=== PATIENT | male | born 1945 | race Caucasian/White ===

== ENCOUNTER 2019-03-06 22:12 | Emergency (ER) | payer MEDICARE ==
--- NOTE | 2019-03-06 22:29 | EDM.PDOC ---
ED HPI GENERAL MEDICAL PROBLEM - General Chief Complaint: Respiratory Problem Stated Complaint: SHORTNESS OF BREATHE Time Seen by Provider: 03/06/19 22:28 Source of Information: Reports: Patient, Family (spouse.) - History of Present Illness INITIAL COMMENTS - FREE TEXT/NARRATIVE: 73-year-old male attends the ED with his after passing a large black tarry bad smelling stool at home tonight. He is also complaining of more short of breath than normal. He has a chronic postnasal drip which causes him to have a paroxysmal cough. He denies fever or chills although he did feel warm to palpation facial he and on his chest. States she's never had any black stools in the past. Last colonoscopy was at least 15 years ago when no polyps or tumors were identified. Denies any upper abdominal pain and no past history of peptic ulcer disease. He does not usually use Motrin or Aleve for pain. Does not take any aspirin. Patient gets occasional heartburn but doesn't use take any Tums or Rolaids. By history is no known congestive heart failure. Patient denies taking any Pepto-Bismol or eating a lot of beets recently. Onset: Today Onset Date: 03/06/19 Onset Time: 19:00 Duration: Minutes: Location: Reports: Abdomen (Passage of a black tarry stool.) Quality: Reports: Other (Denies any pain. Just more short of breath than normal. ) Severity: Mild Improves with: Reports: Rest Worsens with: Reports: Movement Context: Denies: Activity (Slightly more short of breath with activity.), Exercise, Lifting, Sick Contact, Trauma, Other Associated Symptoms: Reports: Cough, cough w sputum (Chronic cough), Malaise, Shortness of Breath, Other (Passage of black tarry stool tonight.). 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) (Only his regular medicines) - Related Data Allergies Allergy/AdvReac Type Severity Reaction Status Date / Time No Known Allergies Allergy Verified 03/06/19 22:23 Home Meds: Home Meds Allopurinol [Zyloprim] 300 mg PO DAILY 03/07/19 [History] Atenolol 50 mg PO BID 03/07/19 [History] Losartan Potassium 100 mg PO DAILY 03/07/19 [History] Omeprazole Magnesium [Prilosec Otc] 20 mg PO DAILY #42 tablet.dr 03/07/19 [Rx] Simvastatin [Zocor] 20 mg PO BEDTIME 03/07/19 [History] Triamcinolone Acetonide [Nasacort AQ [place]] 16.5 gm NASBOTH BEDTIME #1 bottle [Rx] amLODIPine Besylate [Amlodipine Besylate] 10 mg PO DAILY 03/07/19 [History] hydroCHLOROthiazide [Hydrochlorothiazide] 25 mg PO DAILY 03/07/19 [History] Past Medical History Cardiovascular History: Reports: Hypertension, [place] (IL on ECG but not by history. ) Musculoskeletal History: Reports: Back Pain, Chronic, Gout, Osteoarthritis, Other (See Below) (Rotator cuff disease and shoulders.) - Past Surgical History Musculoskeletal Surgical History: Reports: Other (See Below) (Surgery right shoulder for rotator cuff repair. Still has mild pain and reduced range of motion.) Social & Family History - Tobacco Use Smoking Status *Q: Never Smoker Second Hand Smoke Exposure: No - Caffeine Use Caffeine Use: Reports: Coffee - Alcohol Use Days Per Week of Alcohol Use: 7 Number of Drinks Per Day: 1 Total Drinks Per Week: 7 - Recreational Drug Use Recreational Drug Use: No - Living Situation & Occupation Living situation: Reports: Occupation: Retired ED ROS GENERAL - Review of Systems Review Of Systems: See Below Constitutional: Reports: Malaise, Fatigue. Denies: Fever, Chills, Decreased Appetite, Weight Gain HEENT: Reports: Glasses, Hearing Loss (Mild), Sinus Problem (Chronic sinus problems with postnasal drip which precipitate cough.) Respiratory: Reports: Shortness of Breath ( does not use hearing aids). Denies : Wheezing, Pleuritic Chest Pain Cardiovascular: Reports: Blood Pressure Problem, Dyspnea on Exertion. Denies: Claudication, Edema, Lightheadedness, Orthopnea Endocrine: Reports: Fatigue (Chronically) GI/Abdominal: Reports: Other. Denies: Abdominal Pain, Anorexia, Decreased Appetite, Hematemesis, Hematochezia : Reports: No Symptoms, Other Musculoskeletal: Reports: Back Pain (Nocturia usually once.), Joint Pain (Right shoulder with previous rotator cuff repair. Knees low back and neck at times) Skin: Reports: No Symptoms Neurological: Reports: No Symptoms Psychiatric: Reports: No Symptoms Hematologic/Lymphatic: Reports: No Symptoms ED EXAM, GENERAL - Physical Exam Exam: See Below Exam Limited By: No Limitations General Appearance: Alert, WD/WN, No Apparent Distress, Other (Does feel warm to palpation but temperatures reportedly 37.1 by nurses. Pulse of 64 respiratory distress 21 at rest. Pulse ox 97% on room air.. BP is 156/76 came down to 132/68) Eye Exam: Bilateral Eye: Normal Inspection (No scleral icterus.) Ears: Normal External Exam Throat/Mouth: Other Head: Atraumatic (Dry tongue and mouth. He states this is normal as he breathes a lot through his mouth.), Normocephalic Neck: Normal Inspection, Limited Range of Motion, Tender Lateral (Crepitus on rotation of the neck.), Other (No JVD.). No: Full Range of Motion, Carotid Bruit, Lymphadenopathy (L), Lymphadenopathy (R) Respiratory/Chest: Lungs Clear (Mild tachypnea at rest.), Normal Breath Sounds, Chest Non-Tender, Respiratory Distress, Other (Cough is nonproductive.) Cardiovascular: Normal Peripheral Pulses, Regular Rate, Rhythm, No Edema, No Gallop, No Murmur, No Rub Peripheral Pulses: 1+: Posterior Tibial (L), Posterior Tibial (R), Dorsalis Pedis (L), Dorsalis Pedis (R) GI/Abdominal: Normal Bowel Sounds, Soft, Non-Tender, No Organomegaly, No Distention, No Abnormal Bruit, No Mass, Pelvis Stable, Other (Large abdomen. Large abdominal girth inhibits ability to palpate solid organs.). No: Guarding , Rigid, Rebound, Tender (Male) Exam: No Hernia Rectal (Males) Exam: Normal Exam, Prostate Normal (Quite positive stool. Stool is yellow brown in color but the rectal vault for the most part was empty. Prostate is normal), Other Back Exam: Normal Inspection, Decreased Range of Motion Extremities: Normal Inspection (Arthritis changes appreciated and lumbar spine.) , Non-Tender, Other Neurological: Alert ( No dependent edema), Oriented, CN II-XII Intact, Normal Cognition, Normal Gait Psychiatric: Normal Affect, Normal Mood Skin Exam: Warm, Dry, Intact, Normal Color EKG INTERPRETATION EKG Date: 03/06/19 Time: 22:50 Rhythm: NSR Rate (Beats/Min): 59 [place]: LAD-Left [place] Deviation (Mild left axis deviation of -18) P-Wave: Present QRS: Other (There are Q waves V1 and V2 and near Q waves in V3 and V4 compared with an old anteroseptal myocardial infarction) ST-T: Other (T-wave flattening with slight inversion aVF and flattening in aVL. [place] findings) QT: Normal EKG Interpretation Comments: Abnormal ECG Course - Vital Signs Last Recorded V/S: Last Vital Signs Temp 37.1 C 03/06/19 22:17 Pulse 64 03/06/19 22:17 Resp 21 H 03/06/19 22:17 BP 156/76 H 03/06/19 22:17 Pulse Ox 97 03/06/19 22:17 Orthostatic Blood Pressure [ 128/77 Standing] Orthostatic Blood Pressure [ 116/67 Sitting] Orthostatic Blood Pressure [ 115/59 Supine] - Orders/Labs/Meds Orders: Active Orders 24 hr Category Date Time Status EKG Documentation Completion [RC] STAT Care 03/06/19 22:41 Active Hemoccult [Fecal Occult Blood Collection] [RC] Care 03/06/19 23:13 Active ASDIRECTED Orthostatic Vital Signs [RC] ASDIRECTED Care 03/07/19 00:26 Active Chest 1V Frontal [CR] Stat Exams 03/06/19 22:41 Taken Guaiac [OCCULT BLOOD DIAGNOSTIC] [OP] Stat Lab 03/06/19 22:42 Ordered PATIENT RETYPE [BBK] Routine Lab 03/06/19 23:33 Ordered Labs: Laboratory Tests 03/06/19 03/06/19 03/06/19 Range/Units 22:47 22:47 22:47 WBC 9.79 H (4.23-9.07) K/mm3 RBC 5.54 (4.63-6.08) M/mm3 Hgb 16.3 (13.7-17.5) gm/L Hct 46.7 (40.1-51.0) % MCV 84.3 (79.0-92.2) fl MCH 29.4 (25.7-32.2) pg MCHC 34.9 (32.2-35.5) g/dl RDW Std Deviation 39.7 (35.1-43.9) fL Plt Count 205 (163-337) K/mm3 MPV 10.5 (9.4-12.3) fl Neutrophils % (Manual) 65 H (40-60) % Band Neutrophils % 0 (0-10) % Lymphocytes % (Manual) 28 (20-40) % Atypical Lymphs % 0 % Monocytes % (Manual) 7 (2-10) % Eosinophils % (Manual) 0 L (0.8-7.0) % Basophils % (Manual) 0 L (0.2-1.2) Platelet Estimate Adequate RBC Morph Comment Normal ESR 6 (0-15) mm/hr PT (9.5-12.1) SECONDS INR APTT (24-31) SECONDS Sodium 139 (136-145) mEq/L Potassium 3.4 L (3.5-5.1) mEq/L Chloride 103 (98-107) mEq/L Carbon Dioxide 25 (21-32) mEq/L Anion Gap 14.4 (5-15) BUN 19 H (7-18) mg/dL Creatinine 1.4 H (0.7-1.3) mg/dL Est Cr Clr Drug Dosing 42.62 mL/min Estimated GFR (MDRD) 49 (>60) mL/min BUN/Creatinine Ratio 13.6 L (14-18) Glucose 189 H (83-115) mg/dL Calcium 9.0 (8.5-10.1) mg/dL Magnesium 2.0 (1.8-2.4) mg/dl Total Bilirubin 0.6 (0.2-1.0) mg/dL AST 20 (15-37) U/L ALT 30 (16-63) U/L Alkaline Phosphatase 56 (46-116) U/L Troponin I < 0.017 (0.00-0.056) ng/mL C-Reactive Protein < 0.2 (<1.0) mg/dL NT-Pro-B Natriuret Pep (0-450) pg/mL Total Protein 7.4 (6.4-8.2) g/dl Albumin 3.9 (3.4-5.0) g/dl Globulin 3.5 gm/dL Albumin/Globulin Ratio 1.1 (1-2) Urine Color (Yellow) Urine Appearance (Clear) Urine pH (5.0-8.0) Ur Specific [place] (1.005-1.030) Urine Protein (Negative) Urine Glucose (UA) (Negative) Urine Ketones (Negative) Urine Occult Blood (Negative) Urine Nitrite (Negative) Urine Bilirubin (Negative) Urine Urobilinogen (0.2-1.0) Ur Leukocyte Esterase (Negative) Urine RBC (0-5) /hpf Urine WBC (0-5) /hpf Ur Epithelial Cells (0-5) /hpf Urine Bacteria (FEW) /hpf Urine Mucus (FEW) /hpf H. pylori IgG Antibody (NEGATIVE) Blood Type Gel Antibody Screen 03/06/19 03/06/19 03/06/19 Range/Units 22:47 22:47 22:47 WBC (4.23-9.07) K/mm3 RBC (4.63-6.08) M/mm3 Hgb (13.7-17.5) gm/L Hct (40.1-51.0) % MCV (79.0-92.2) fl MCH (25.7-32.2) pg MCHC (32.2-35.5) g/dl RDW Std Deviation (35.1-43.9) fL Plt Count (163-337) K/mm3 MPV (9.4-12.3) fl Neutrophils % (Manual) (40-60) % Band Neutrophils % (0-10) % Lymphocytes % (Manual) (20-40) % Atypical Lymphs % % Monocytes % (Manual) (2-10) % Eosinophils % (Manual) (0.8-7.0) % Basophils % (Manual) (0.2-1.2) Platelet Estimate RBC Morph Comment ESR (0-15) mm/hr PT 11.7 (9.5-12.1) SECONDS INR 1.07 APTT 28 (24-31) SECONDS Sodium (136-145) mEq/L Potassium (3.5-5.1) mEq/L Chloride (98-107) mEq/L Carbon Dioxide (21-32) mEq/L Anion Gap (5-15) BUN (7-18) mg/dL Creatinine (0.7-1.3) mg/dL Est Cr Clr Drug Dosing mL/min Estimated GFR (MDRD) (>60) mL/min BUN/Creatinine Ratio (14-18) Glucose (83-115) mg/dL Calcium (8.5-10.1) mg/dL Magnesium (1.8-2.4) mg/dl Total Bilirubin (0.2-1.0) mg/dL AST (15-37) U/L ALT (16-63) U/L Alkaline Phosphatase (46-116) U/L Troponin I (0.00-0.056) ng/mL C-Reactive Protein (<1.0) mg/dL NT-Pro-B Natriuret Pep 73 (0-450) pg/mL Total Protein (6.4-8.2) g/dl Albumin (3.4-5.0) g/dl Globulin gm/dL Albumin/Globulin Ratio (1-2) Urine Color (Yellow) Urine Appearance (Clear) Urine pH (5.0-8.0) Ur Specific [place] (1.005-1.030) Urine Protein (Negative) Urine Glucose (UA) (Negative) Urine Ketones (Negative) Urine Occult Blood (Negative) Urine Nitrite (Negative) Urine Bilirubin (Negative) Urine Urobilinogen (0.2-1.0) Ur Leukocyte Esterase (Negative) Urine RBC (0-5) /hpf Urine WBC (0-5) /hpf Ur Epithelial Cells (0-5) /hpf Urine Bacteria (FEW) /hpf Urine Mucus (FEW) /hpf H. pylori IgG Antibody Negative (NEGATIVE) Blood Type A POSITIVE Gel Antibody Screen Negative 03/07/19 Range/Units 00:22 WBC (4.23-9.07) K/mm3 RBC (4.63-6.08) M/mm3 Hgb (13.7-17.5) gm/L Hct (40.1-51.0) % MCV (79.0-92.2) fl MCH (25.7-32.2) pg MCHC (32.2-35.5) g/dl RDW Std Deviation (35.1-43.9) fL Plt Count (163-337) K/mm3 MPV (9.4-12.3) fl Neutrophils % (Manual) (40-60) % Band Neutrophils % (0-10) % Lymphocytes % (Manual) (20-40) % Atypical Lymphs % % Monocytes % (Manual) (2-10) % Eosinophils % (Manual) (0.8-7.0) % Basophils % (Manual) (0.2-1.2) Platelet Estimate RBC Morph Comment ESR (0-15) mm/hr PT (9.5-12.1) SECONDS INR APTT (24-31) SECONDS Sodium (136-145) mEq/L Potassium (3.5-5.1) mEq/L Chloride (98-107) mEq/L Carbon Dioxide (21-32) mEq/L Anion Gap (5-15) BUN (7-18) mg/dL Creatinine (0.7-1.3) mg/dL Est Cr Clr Drug Dosing mL/min Estimated GFR (MDRD) (>60) mL/min BUN/Creatinine Ratio (14-18) Glucose (83-115) mg/dL Calcium (8.5-10.1) mg/dL Magnesium (1.8-2.4) mg/dl Total Bilirubin (0.2-1.0) mg/dL AST (15-37) U/L ALT (16-63) U/L Alkaline Phosphatase (46-116) U/L Troponin I (0.00-0.056) ng/mL C-Reactive Protein (<1.0) mg/dL NT-Pro-B Natriuret Pep (0-450) pg/mL Total Protein (6.4-8.2) g/dl Albumin (3.4-5.0) g/dl Globulin gm/dL Albumin/Globulin Ratio (1-2) Urine Color Yellow (Yellow) Urine Appearance Clear (Clear) Urine pH 5.5 (5.0-8.0) Ur Specific [place] 1.015 (1.005-1.030) Urine Protein Negative (Negative) Urine Glucose (UA) Negative (Negative) Urine Ketones Negative (Negative) Urine Occult Blood Negative (Negative) Urine Nitrite Negative (Negative) Urine Bilirubin Negative (Negative) Urine Urobilinogen 0.2 (0.2-1.0) Ur Leukocyte Esterase Negative (Negative) Urine RBC 0-5 (0-5) /hpf Urine WBC 0-5 (0-5) /hpf Ur Epithelial Cells 0-5 (0-5) /hpf Urine Bacteria Few (FEW) /hpf Urine Mucus Rare (FEW) /hpf H. pylori IgG Antibody (NEGATIVE) Blood Type Gel Antibody Screen Meds: Medications Discontinued Medications Generic Name Dose Route Start Last Admin Trade Name Freq PRN Reason Stop Dose Admin Sodium Chloride 1,000 mls @ 100 mls/hr 03/06/19 22:45 03/06/19 22:54 Normal Saline IV 100 mls/hr ASDIRECTED CARRILLO Administration Pantoprazole Sodium 40 mg 03/06/19 23:12 03/06/19 23:21 Protonix Iv IVPUSH 03/06/19 23:13 40 mg ONETIME ONE Administration - Radiology Interpretation Free Text/Narrative:: 73-year-old male presents to the ED with perhaps slightly worsening shortness of breath over the last few days. He has a chronic paroxysmal cough due to postnasal drip. He often brings up some sputum and phlegm. By history has COPD. Not using any medications for this. History of complaint is passage of a large black tarry bad smelling stool tonight at about 1900 hrs. He has no abdominal pain and has no history to suggest dyspepsia or peptic ulcer disease. Has occasional heartburn but this is quite rare and takes no medicine for this. He does not take Motrin, Aleve or aspirin. Dominant examination. Rectal exam is quite positive. Vital signs are all stable at this time. Plan IV normal saline at 100 mils per hour. Routine labs including BNP and H. pylori to be done. One view x-ray to be done of his chest. - Re-Assessments/Exams Free Text/Narrative Re-Assessment/Exam: 03/06/19 23:13 stool was yellow-brown in color in the rectal vault was for the most part empty. But he did test positive for blood. Prostate is within normal limits showing no nodularity or induration of the capsule. Will give Protonix 40 mg IV. 03/06/19 23:49 chest x-ray reveals an abnormal bony density left upper anterior chest probably representing chondrocalcinosis. Is likely old fracture of ribs 2 and 3. Cardiac silhouette is essentially normal and lungs reveal no other abnormalities. 03/06/19 23:52 Labs reveal a normal white count at 9.79. Differential 65% neutrophils and no band cells reported. Hemoglobin is 16.3 with hematocrit of 46.7. Platelet count is 205,000. Sedimentation rate is 6. PT is 11.7 with an INR of 1.07. PTT is 28. Sodium 139 with a potassium slightly low at 3.4. Chloride is 103 with a bicarbonate of 25. Anion gap is 14.4. BUN is 19 with a creatinine of 1.4. Estimated GFR is 49. Glucose is 189. Calcium is 9.0 with magnesium of 2.0. Liver function normal. Troponin I is less than 0.017 C- reactive protein is less than 0.2. BNP is 73. Total protein is 7.4. H. pylori antibody is negative. With a BUN of 19 this is again stay significant upper GI bleed. Therefore bleeding may be coming from the right side of the colon. 03/07/19 00:44 bottles signs remained completely stable with no abdominal pain. Therefore going to discharge him home as he appears to have a stable upper GI bleed. For the stools to be black in color he probably had a bleed 2 days ago. He is likely going to have at least one further black stool and possibly 2 in the next day or so but he is to return immediately to the hospital if he has any bright red bloody stools. He and his were advised that he requires further investigation by way of upper GI endoscopy and likely colonoscopy to look for the source of black stool/heme positive. He will make an appointment to follow-up with Shauna Perez this week. Meantime I advised him to start Prilosec 20 mg once daily at bedtime until endoscopies can be carried out to rule out underlying malignancy or peptic ulcer disease. Accolate we spoke about his chronic postnasal drip causing his cough and suggested use of Nasacort AQ 2 squirts to each side at bedtime and then to send him back up position to try and reduce his nasal secretions and chronic cough which I believe is postnasal in origin. Departure - Departure Time of Disposition: 00:46 Disposition: Home, Self-Care 01 Condition: Fair Clinical Impression: Allergic rhinitis with postnasal drip GI (gastrointestinal bleed) Qualifiers: GI bleed type/associated pathology: unspecified gastrointestinal hemorrhage type Qualified Code(s): K92.2 - Gastrointestinal hemorrhage, unspecified - Discharge Information *PRESCRIPTION DRUG MONITORING PROGRAM REVIEWED*: Not Applicable *COPY OF PRESCRIPTION DRUG MONITORING REPORT IN PATIENT ISABELLA: Not Applicable Prescriptions: Omeprazole Magnesium [Prilosec Otc] 20 mg PO DAILY #42 tablet. Triamcinolone Acetonide [Nasacort AQ [place]] 16.5 gm NASBOTH BEDTIME #1 bottle Instructions: Gastrointestinal Bleeding, [id number], Allergic Rhinitis, Adult Referrals: Shauna Perez, MENTAL HEALTH CONSULTANT [Primary Care Provider] - Forms: ED Department Discharge Additional Instructions: Evaluation in the emergency department tonight in regards to feeling increased shortness of breath associated with the development of passage of a dark black stool. Passage of dark black stools suggested this is coming from the GI tract likely the upper GI tract and likely some bleeding from the stomach or first part of the small bowel occurred a couple of days ago and as it traveled through the gut the bacteria will turn the blood dark black in color. All of the lab work done in the ED was within normal limits with a hemoglobin in the 16.1 range which is high normal. Therefore it appears that the bleeding was minimal. However its own warning sign that something may be going on in the GI tract to place blood into the small or large bowel and this needs further investigation by way of upper and lower GI endoscopy. Blood pressure is stable and therefore you will be allowed to go home tonight. Expect black stool once or twice in the next couple of days and then should return to normal color. If at anytime the stool turns bright red in color or active bleeding you return immediately to the ED. Up with your normal primary care provider in the next couple of days to get a surgeon involved to have upper and lower GI endoscopies performed to rule out any cancers. In the meantime I wish you to start omeprazole/Prilosec 20 mg once daily at bedtime nightly until after the scopes are completed. Also discussed use of Nasacort AQ nasal spray 2 squirts to each side of her nose once daily at bedtime to try and reduce the amount of postnasal drip and chronic cough. - My Orders Last 24 Hours: My Active Orders 03/06/19 22:41 EKG Documentation Completion [RC] STAT Chest 1V Frontal [CR] Stat 03/06/19 22:42 Guaiac [OCCULT BLOOD DIAGNOSTIC] [OP] Stat 03/06/19 23:13 Hemoccult [Fecal Occult Blood Collection] [RC] ASDIRECTED 03/06/19 23:33 PATIENT RETYPE [BBK] Routine 03/07/19 00:26 Orthostatic Vital Signs [RC] ASDIRECTED - Assessment/Plan Last 24 Hours: My Active Orders 03/06/19 22:41 EKG Documentation Completion [RC] STAT Chest 1V Frontal [CR] Stat 03/06/19 22:42 Guaiac [OCCULT BLOOD DIAGNOSTIC] [OP] Stat 03/06/19 23:13 Hemoccult [Fecal Occult Blood Collection] [RC] ASDIRECTED 03/06/19 23:33 PATIENT RETYPE [BBK] Routine 03/07/19 00:26 Orthostatic Vital Signs [RC] ASDIRECTED
[2019-03-06] MEDS ORDERED: Sodium Chloride 0.9% 1,000 ML IV SCH (22:45)
[2019-03-06] MEDS ORDERED: Pantoprazole 40 MG Vial IVPUSH ONE (23:12)
--- NOTE | 2019-03-07 07:27 | CR ---
Chest: Portable view of the chest was obtained. Comparison: No previous chest x-ray. Heart size is normal. Tortuous thoracic aorta is seen. Lungs are clear. Degenerative endplate spurring is noted within the spine. Impression: 1. Incidental findings. Nothing acute is appreciated. Diagnostic code #2
== END 2019-03-07 01:16 | disposition home or self-care (01) ==
LOC: JD.ED 22:12
DX: J30.9 Allergic rhinitis, unspecified (principal); K92.2 Gastrointestinal hemorrhage, unspecified; I10 Essential (primary) hypertension; I25.2 Old myocardial infarction; Z79.899 Other long term (current) drug therapy
CPT/HCPCS: 36415; 71045; 80053; 81001; 83735; 83880; 84484; 85007; 85027; 85610; 85652; 85730; 86140; 86677; 86850; 86900; 86901; 93005; 96361; 96374; 99285; C9113; J7040; 93010; 99284

== ENCOUNTER 2019-03-23 07:15 | Day surgery (SDC) | payer MEDICARE ==
[~2019-03-23 07:15] MED LIST: Lactated Ringers 1,000 ML IV SCH; Lidocaine 1%/Sod Bicarbonate in NS 8.4% 1 ML Syringe IDERM PRN; Sodium Chloride 0.9% 10 ML Syringe FLUSH PRN
--- NOTE | 2019-03-23 07:38 | PCM.PREANE ---
Preanesthetic Assessment - Procedure Proposed Procedure: egd colonoscopy - Anesthesia/Transfusion/Family Hx Anesthesia History: Prior Anesthesia Without Reaction Family History of Anesthesia Reaction: No Transfusion History: No Prior Transfusion(s) - Review of Systems General: No Symptoms Pulmonary: Shortness of Breath Cardiovascular: No Symptoms Gastrointestinal: No Symptoms Neurological: No Symptoms Other: Reports: None - Physical Assessment NPO Status Date: 03/22/19 NPO Status Time: 23:30 Pulse: 56 O2 Sat by Pulse Oximetry: 97 Respiratory Rate: 16 Blood Pressure: 132/67 Temperature: 97.5 F Height: 5 ft 7 in Weight: 92.986 kg ASA Class: 3 Mental Status: Alert & Oriented x3 Airway Class: Mallampati = 1 Dentition: Reports: Dentures, Missing Tooth/Teeth Thyro-Mental Finger Breadths: 3 Mouth Opening Finger Breadths: 3 ROM/Head Extension: Full Lungs: Clear to Auscultation, Normal Respiratory Effort Cardiovascular: Regular Rate, Regular Rhythm - Allergies Allergies/Adverse Reactions: Allergies Allergy/AdvReac Type Severity Reaction Status Date / Time No Known Allergies Allergy Verified 03/22/19 12:06 - Anesthesia Plan Beta Dong: Atenolol Med Last Dose Date: 03/23/19 Med Last Dose Time: 06:30 - Acknowledgements Anesthesia Type Planned: MAC Pt an Appropriate Candidate for the Planned Anesthesia: Yes Alternatives and Risks of Anesthesia Discussed w Pt/Guardian: Yes Pt/Guardian Understands and Agrees with Anesthesia Plan: Yes PreAnesthesia Questionnaire HEENT History: Reports: Other (See Below) Other HEENT History: wears glasses, has partial Cardiovascular History: Reports: Hypertension, [place] Respiratory History: Reports: SOB, Other (See Below) Other Respiratory History: cough Gastrointestinal History: Reports: GERD Genitourinary History: Reports: None DIRECTOR TRADING History: Reports: None Musculoskeletal History: Reports: Back Pain, Chronic, Gout, Osteoarthritis, Other (See Below) Neurological History: Reports: None Psychiatric History: Reports: None Endocrine/Metabolic History: Reports: None Hematologic History: Reports: None Immunologic History: Reports: None Oncologic (Cancer) History: Reports: None Other Dermatologic History: atypical pigmented skin lesion, rash - Past Surgical History Head Surgeries/Procedures: Reports: None Cardiovascular Surgical History: Reports: None Respiratory Surgical History: Reports: None GI Surgical History: Reports: Colonoscopy Female Surgical History: Reports: None Male Surgical History: Reports: None Endocrine Surgical History: Reports: None Neurological Surgical History: Reports: None Musculoskeletal Surgical History: Reports: Shoulder Surgery, Other (See Below) Dermatological Surgical History: Reports: None - SUBSTANCE USE Smoking Status *Q: Current Every Day Smoker Tobacco Use Within Last Twelve Months: Snuff/Dip Second Hand Smoke Exposure: No Days Per Week of Alcohol Use: 7 Number of Drinks Per Day: 1 Total Drinks Per Week: 7 Recreational Drug Use History: No - HOME MEDS Home Medications: Home Meds Allopurinol [Zyloprim] 300 mg PO DAILY 03/07/19 [History] Atenolol 50 mg PO BID 03/07/19 [History] Losartan Potassium 100 mg PO DAILY 03/07/19 [History] Omeprazole Magnesium [Prilosec Otc] 20 mg PO DAILY #42 tablet.dr 03/07/19 [Rx] Simvastatin [Zocor] 20 mg PO BEDTIME 03/07/19 [History] amLODIPine Besylate [Amlodipine Besylate] 10 mg PO DAILY 03/07/19 [History] hydroCHLOROthiazide [Hydrochlorothiazide] 25 mg PO DAILY 03/07/19 [History] - CURRENT (IN HOUSE) MEDS Current Meds: Current Medications Lactated Ringer's (Ringers, Lactated) 1,000 mls @ 125 mls/hr IV ASDIRECTED CARRILLO Stop: 03/23/19 23:00 Lidocaine/Sodium Bicarbonate (Buffered Lidocaine 1% In Ns 8.4%) 0.25 ml IDERM ONETIME PRN PRN Reason: Prior to IV Start Stop: 03/23/19 18:00 Sodium Chloride (Saline Flush) 10 ml FLUSH ASDIRECTED PRN PRN Reason: Keep Vein Open Stop: 03/23/19 18:00
[2019-03-23] MEDS ORDERED: Propofol 200 MG/20 ML SDV ONE ×2 (07:42→08:18)
[2019-03-23] MEDS ORDERED: Lidocaine 1% 4 ML ONE (07:42)
[2019-03-23] MEDS ORDERED: fentaNYL 100 MCG/2 ML SDV ONE (07:42)
--- NOTE | 2019-03-23 09:15 | PCM48HPAN ---
Post Anesthesia Note - EVALUATION WITHIN 48HRS OF ANESTHETIC Vital Signs in Normal Range: Yes Patient Participated in Evaluation: Yes Respiratory Function Stable: Yes (on o2 per nc until wakes up more- ) Airway Patent: Yes Cardiovascular Function Stable: Yes Hydration Status Stable: Yes Pain Control Satisfactory: Yes Nausea and Vomiting Control Satisfactory: Yes Mental Status Recovered: Yes Pulse Rate: 56 Resp Rate: 16 Temperature: 97.5 F Blood Pressure: 132/67
--- NOTE | 2019-03-24 07:03 | OR ---
DATE OF OPERATION: 03/23/2019 SURGEON: Rashid Frias MD PREOPERATIVE DIAGNOSIS: Bleeding per rectum. POSTOPERATIVE DIAGNOSIS: 1. Bleeding per rectum. 2. Gastritis. 3. Multiple colon polyps. 4. Diverticulosis of the sigmoid colon. OPERATION PERFORMED: Diagnostic EGD with biopsies. Diagnostic colonoscopy with snare polypectomy. Submucosal injection of tattoo. ANESTHESIA: MAC. FINDINGS: He had some mild gastritis in the antrum and body of the stomach. There was no hiatal hernia. I found no ulcerations. The colon had multiple pedunculated polyps stretching from the rectum all the way to the cecum, too numerous to count. One of the largest polyps was in the splenic flexure, this stretched across significant portion of mucosal fold at the hepatic flexure. This was tattooed in 3 locations adjacent to the polyp. This was too large to remove endoscopically. ESTIMATED BLOOD LOSS: Minimal. COMPLICATIONS: None. DISPOSITION: Stable at the end of procedure. PATHOLOGY: 1. Duodenal biopsy x4. 2. Antrum and body testing for H. pylori. 3. Body of the stomach testing for H. pylori. 4. Fundus of the stomach testing for H. pylori. 5. Distal esophagus. 6. Rectal polyp. 7. Rectosigmoid polyp x3. 8. Splenic flexure polyp x5. 9. Cecal polyp x2. 10.Transverse colon polyp. 11.Hepatic flexure polyp. The hepatic flexure polyp was the largest of these polyps, it was too large to remove endoscopically. INDICATION: This is a patient who presented to my office with melena. The patient was booked for an EGD and colonoscopy. He was fully informed of the major risks, benefits, and alternatives. Please see my H and P for further details of that discussion. He gave informed consent on the day of the procedure as well. DESCRIPTION OF PROCEDURE: He was brought to the gastro suite and placed in the left lateral decubitus position. A bite-block was placed, MAC was administered. I introduced the scope into the proximal esophagus. I advanced the scope with gentle forward pressure keeping the lumen in view at all times. I advanced the scope to the stomach. I intubated the pylorus. The scope was flexed to the 4th portion. I biopsied 4 portions of the duodenum randomly. I withdrew the scope into the stomach and surveyed the stomach for ulcers. I found some mild gastritis in the distal stomach, but no ulcerations were identified. I biopsied the antrum, body, and fundus. I retroflexed the scope visualizing the GE junction. He had no apparent hiatal hernia. I withdrew the scope into the GE junction and inspected the GE junction. There was no evidence of Sales's esophagus. I biopsied the distal esophagus. The scope was readvanced in the stomach and I evacuated the air in the stomach in its entirety. I inspected for bleeding and there was none. I then withdrew the scope back into the esophagus, inspected the mucosa of the esophagus in its entirety. I found no mucosal lesions whatsoever. The scope was withdrawn. I turned my attention to the colonoscopy. A digital rectal exam was performed. This was unremarkable. I introduced the scope into the rectum with copious lubrication. I advanced the scope just a couple of centimeters and identified a polyp in the rectum. This was removed with a snare and additional 3 polyps were identified in the rectosigmoid junction. These were also removed with the snare. All these polyps were evacuated with suction. As I advanced the scope to the splenic flexure, identified 5 additional polyps. These were removed again with the snare and evacuated into a trap. I reached the cecum, documented the cecum photographically. Two additional polyps were identified in the cecum and these were extracted with a snare as well and evacuated into a trap. The transverse colon polyp was identified and this was also removed. At the hepatic flexure, I identified a large polyp which was too large to remove. This was comprising the entire length of a mucosal fold and I felt it was too large to remove endoscopically. A biopsied in 2 locations and this was done with the biopsy forceps. I tattooed in 3 locations directly adjacent to the polyp with endoscopic submucosal injection of tattoo. A total of 5 mL was used for this purpose. The remainder of his colonoscopy was unremarkable aside from extensive sigmoid diverticulosis. At the end of the procedure, the scope was withdrawn and the air was evacuated on the way out. He had no complications and tolerated the procedure well. He had an excellent bowel prep for an excellent visualization. PLAN: I will see him in the office in 2 weeks to discuss results of pathology. [facility] /[id number]
== END 2019-03-23 09:55 | disposition home or self-care (01) ==
LOC: JD.SDS 07:15
PROVIDERS: ATTEND Surgery
DX: K57.31 Diverticulosis of large intestine without perforation or abscess with bleeding (principal); K29.51 Unspecified chronic gastritis with bleeding; K62.5 Hemorrhage of anus and rectum; D12.0 Benign neoplasm of cecum; D12.7 Benign neoplasm of rectosigmoid junction; D12.3 Benign neoplasm of transverse colon; K21.0 Gastro-esophageal reflux disease with esophagitis; B96.81 Helicobacter pylori [H. pylori] as the cause of diseases classified elsewhere; I10 Essential (primary) hypertension; I25.2 Old myocardial infarction; E78.5 Hyperlipidemia, unspecified; F17.200 Nicotine dependence, unspecified, uncomplicated; M10.9 Gout, unspecified; Z79.899 Other long term (current) drug therapy
CPT/HCPCS: 00813; J2001; J2704; J3010; J7120

== ENCOUNTER 2020-04-12 07:02 | Day surgery (SDC) | payer MEDICARE ==
[2020-04-12] MEDS ORDERED: Propofol 200 MG/20 ML SDV ONE ×2 (07:32→08:35)
[2020-04-12] MEDS ORDERED: fentaNYL 100 MCG/2 ML SDV ONE (07:32)
[2020-04-12] MEDS ORDERED: Ketamine 500 mg/10 ML MDV ONE (07:33)
[2020-04-12] MEDS ORDERED: Lidocaine 1% 4 ML ONE (07:36)
[2020-04-12] MEDS ORDERED: Ondansetron 4 MG/2 ML SDV ONE (07:36)
--- NOTE | 2020-04-12 08:28 | PCM.PREANE ---
Preanesthetic Assessment - Procedure Proposed Procedure: Screening EGD Colonoscopy Post partial colectomy 11 months ago - Anesthesia/Transfusion/Family Hx Anesthesia History: Prior Anesthesia Without Reaction Family History of Anesthesia Reaction: No Transfusion History: No Prior Transfusion(s) - Review of Systems General: No Symptoms Pulmonary: No Symptoms Cardiovascular: No Symptoms, Other (Hypertension, Active plays golf regularly. ) Gastrointestinal: No Symptoms Neurological: No Symptoms Other: Reports: Diabetes (Type II, Oral agent for control. ) - Physical Assessment NPO Status Date: 04/12/20 NPO Status Time: 04:30 Vital Signs: Last Vital Signs Temp 37.0 C 04/12/20 07:05 Pulse 57 L 04/12/20 07:05 Resp 16 04/12/20 07:05 BP 153/60 H 04/12/20 07:05 Pulse Ox 96 04/12/20 07:05 Height: 1.68 m Weight: 91 kg ASA Class: 2 Mental Status: Alert & Oriented x3 Airway Class: Mallampati = 2 Dentition: Reports: Normal Dentition Thyro-Mental Finger Breadths: 3 Mouth Opening Finger Breadths: 3 ROM/Head Extension: Full Lungs: Clear to Auscultation, Normal Respiratory Effort Cardiovascular: Regular Rate, Regular Rhythm, Bradycardia - Allergies Allergies/Adverse Reactions: Allergies Allergy/AdvReac Type Severity Reaction Status Date / Time No Known Allergies Allergy Verified 04/11/20 15:47 - Anesthesia Plan Beta Dong: Metoprolol Med Last Dose Date: 04/12/20 Med Last Dose Time: 06:00 - Acknowledgements Anesthesia Type Planned: MAC Pt an Appropriate Candidate for the Planned Anesthesia: Yes Alternatives and Risks of Anesthesia Discussed w Pt/Guardian: Yes Pt/Guardian Understands and Agrees with Anesthesia Plan: Yes PreAnesthesia Questionnaire HEENT History: Reports: Impaired Vision, Other (See Below) Other HEENT History: wears glasses, has partial Cardiovascular History: Reports: Hypertension, [place] Respiratory History: Reports: SOB, Other (See Below) Other Respiratory History: cough Gastrointestinal History: Reports: Chronic Diarrhea, GERD, Hemorrhoids, Helicobacter Pylori Genitourinary History: Reports: None INDEPENDENT JEWELER History: Reports: None Musculoskeletal History: Reports: Back Pain, Chronic, Gout, Osteoarthritis, Other (See Below) Neurological History: Reports: None Psychiatric History: Reports: None Endocrine/Metabolic History: Reports: None Hematologic History: Reports: None Immunologic History: Reports: None Oncologic (Cancer) History: Reports: None Other Dermatologic History: atypical pigmented skin lesion, rash - Past Surgical History Head Surgeries/Procedures: Reports: None Cardiovascular Surgical History: Reports: None Respiratory Surgical History: Reports: None GI Surgical History: Reports: Colonoscopy, Other (See Below) Other GI Surgeries/Procedures: partial colectomy Female Surgical History: Reports: None Male Surgical History: Reports: None Endocrine Surgical History: Reports: None Neurological Surgical History: Reports: None Musculoskeletal Surgical History: Reports: Shoulder Surgery, Other (See Below) Oncologic Surgical History: Reports: None Dermatological Surgical History: Reports: None - SUBSTANCE USE Smoking Status *Q: Former Smoker Days Per Week of Alcohol Use: 7 Number of Drinks Per Day: 2 Total Drinks Per Week: 14 Recreational Drug Use History: No - HOME MEDS Home Medications: Home Meds Losartan Potassium 100 mg PO DAILY 03/07/19 [History] Simvastatin [Zocor] 20 mg PO BEDTIME 03/07/19 [History] allopurinoL [Zyloprim] 300 mg PO DAILY 03/07/19 [History] amLODIPine Besylate [Amlodipine Besylate] 10 mg PO DAILY 03/07/19 [History] atenoloL [Atenolol] 50 mg PO BID 03/07/19 [History] hydroCHLOROthiazide [Hydrochlorothiazide] 25 mg PO DAILY 03/07/19 [History] Pantoprazole Sodium [Protonix] 40 mg PO DAILY 04/11/20 [History] metFORMIN HCl [Metformin HCl ER] 750 mg PO DAILY 04/11/20 [History] - CURRENT (IN HOUSE) MEDS Current Meds: Current Medications Lactated Ringer's (Ringers, Lactated) 1,000 mls @ 125 mls/hr IV ASDIRECTED CARRILOL Stop: 04/12/20 23:00 Last Admin: 04/12/20 07:15 Dose: 125 mls/hr Documented by: Lidocaine/Sodium Bicarbonate (Buffered Lidocaine 1% In Ns 8.4%) 0.25 ml IDERM ONETIME PRN PRN Reason: Prior to IV Start Stop: 04/12/20 18:00 Last Admin: 04/12/20 07:15 Dose: 0.25 ml Documented by: Sodium Chloride (Saline Flush) 10 ml FLUSH ASDIRECTED PRN PRN Reason: Keep Vein Open Stop: 04/12/20 18:00 Discontinued Medications Fentanyl (Sublimaze) Confirm Administered Dose 100 mcg .ROUTE .STK-MED ONE Stop: 04/12/20 07:33 Lidocaine HCl (Xylocaine-Mpf 1%) Confirm Administered Dose 4 mls @ as directed .ROUTE .STK-MED ONE Stop: 04/12/20 07:37 Ketamine HCl (Ketalar) Confirm Administered Dose 500 mg .ROUTE .STK-MED ONE Stop: 04/12/20 07:34 Ondansetron HCl (Zofran) Confirm Administered Dose 4 mg .ROUTE .STK-MED ONE Stop: 04/12/20 07:37 Propofol (Diprivan 20 Ml) Confirm Administered Dose 400 mg .ROUTE .STK-MED ONE Stop: 04/12/20 07:33
--- NOTE | 2020-04-12 08:49 | PCM48HPAN ---
Post Anesthesia Note - EVALUATION WITHIN 48HRS OF ANESTHETIC Vital Signs in Normal Range: No (BP needing recheck before discharge 83/46.) Patient Participated in Evaluation: Yes Respiratory Function Stable: Yes Airway Patent: Yes Cardiovascular Function Stable: Yes Hydration Status Stable: Yes Pain Control Satisfactory: Yes Nausea and Vomiting Control Satisfactory: Yes Mental Status Recovered: Yes Vital Signs: Last Vital Signs Temp 37.0 C 04/12/20 07:05 Pulse 57 L 04/12/20 07:05 Resp 16 04/12/20 07:05 BP 153/60 H 04/12/20 07:05 Pulse Ox 96 04/12/20 07:05
--- NOTE | 2020-04-12 08:58 | PCM.PRNOTE ---
- Free Text/Narrative Note: Date: 04/12/2020 Procedure: diagnostic esophagogastroduodenoscopy, screening colonoscopy Indications: refractory reflux-type symptoms, history of colon polyposis with partial colectomy for large benign adenoma last year Endoscopist: Dereck Kahn MD Findings: mild erythematous change of the proximal duodenum. No hiatal hernia appreciated. Tortuous esophagus with scattered, hypopigmented plaques mostly in the mid-esophagus. No erythema or ulceration of the esophageal mucosa appreciated. Ileocolic anastomosis visualized; no polyps identified. Mild diverticular disease of the sigmoid. Detailed Report: The patient was taken to the endoscopy suite and placed in left lateral decubitus position. time out was performed and monitored anesthesia care initiated. A bite block was placed. The endoscope was inserted in the mouth and advanced to the second portion of the duodenum. Mucosa of the proximal deuodenum appeared slightly erythematous. A sample biopsy with forceps was obtained. The stomach appeared grossly normal. A sample of the antrum was obtained. On retroflexion, no hiatal hernia was appreciated. The Z-line appeared normal, without signs of gross metaplasia or reflux esophagitis. The esophagus had a tortuous appearance with a few folds and turns distally. The mid esophagus had scattered, well demarcated beige-colored plaque like lesions. Samples of the distal and mid-esophageal mucosa were obtained. Air was evacuated from the stomach and the scope withdrawn. Next, attention was turned to colonoscopy. External hemorrhoidal skin tags were noted. Digital exam was unremarkable and prostate felt normal. The colonoscope was inserted and advanced all the way to the ileocolic anastomosis. This appeared healthy, and there appeared to be two small bowel lumens, one short and blind-ending. The prep was very good. The scope was withdrawn, and mucosal surfaces carefully inspected. No polyps were identified. There were a few small diverticula of the sigmoid. No pathology noted on retroflexion within the rectum. Air was evacuated and the scope withdrawn. The patient tolerated the procedure well. Dereck Kahn MD General Surgery
== END 2020-04-12 10:35 | disposition home or self-care (01) ==
LOC: JD.SDS 07:02
PROVIDERS: ATTEND Surgery
DX: Z12.11 Encounter for screening for malignant neoplasm of colon (principal); K64.4 Residual hemorrhoidal skin tags; K29.50 Unspecified chronic gastritis without bleeding; K57.30 Diverticulosis of large intestine without perforation or abscess without bleeding; K22.8 Other specified diseases of esophagus; K31.89 Other diseases of stomach and duodenum; K21.9 Gastro-esophageal reflux disease without esophagitis; I10 Essential (primary) hypertension; E78.5 Hyperlipidemia, unspecified; E11.9 Type 2 diabetes mellitus without complications; Z86.010 Personal history of colon polyps; Z79.899 Other long term (current) drug therapy; Z79.84 Long term (current) use of oral hypoglycemic drugs; Z90.49 Acquired absence of other specified parts of digestive tract; Z87.891 Personal history of nicotine dependence
CPT/HCPCS: 43239; 88305; 88342; G0105; J2001; J2405; J2704; J3010; J7120; 00813

== ENCOUNTER 2020-10-16 07:49 | Emergency (ER) | payer MEDICARE ==
--- NOTE | 2020-10-16 08:34 | EDM.PDOC ---
ED HPI GENERAL MEDICAL PROBLEM - General Chief Complaint: Gastrointestinal Problem Stated Complaint: RECTAL BLEEDING Time Seen by Provider: 10/16/20 08:15 Source of Information: Reports: Patient History Limitations: Reports: No Limitations, Other - History of Present Illness INITIAL COMMENTS - FREE TEXT/NARRATIVE: 74-year-old male presents to the emergency department complaints of rectal bleeding. Patient states that on and , both times that he had a bowel movement it felt like "burning ". Patient then states that 2 days later on Thursday and Thursday he had 1 bloody bowel movement each day patient describes it as amanda red blood in a moderate amount. Patient then states that both the days about an hour after he had a bowel movement he felt t he urge to have another but there was no blood noted. Patient states he came in today because when he had a bowel movement it was the same burning feeling that he had had last . Of note he does have a history of polyps for which he did have part of his colon removed. This happened about 18 months ago. He has had a colonoscopy within the last year. He also does admit to a significant h istory of having hemorrhoids within the last 2 years as well he has needed to use internal suppositories. - Related Data Allergies Allergy/AdvReac Type Severity Reaction Status Date / Time No Known Allergies Allergy Verified 10/16/20 08:08 Home Meds: Home Meds Losartan Potassium 100 mg PO DAILY 03/07/19 [History] Simvastatin [Zocor] 20 mg PO BEDTIME 03/07/19 [History] allopurinoL [Zyloprim] 300 mg PO DAILY 03/07/19 [History] amLODIPine Besylate [Amlodipine Besylate] 10 mg PO DAILY 03/07/19 [History] atenoloL [Atenolol] 50 mg PO BID 03/07/19 [History] hydroCHLOROthiazide [Hydrochlorothiazide] 25 mg PO DAILY 03/07/19 [History] Pantoprazole Sodium [Protonix] 40 mg PO DAILY 04/11/20 [History] metFORMIN HCl [Metformin HCl ER] 750 mg PO DAILY 04/11/20 [History] Past Medical History HEENT History: Reports: Other (See Below) Other HEENT History: wears glasses, has partial Cardiovascular History: Reports: Hypertension Respiratory History: Reports: SOB, Other (See Below) Other Respiratory History: cough Gastrointestinal History: Reports: GERD Genitourinary History: Reports: None AERODYNAMIC CONSULTANT History: Reports: None Musculoskeletal History: Reports: Back Pain, Chronic, Gout, Osteoarthritis, Other (See Below) Neurological History: Reports: None Psychiatric History: Reports: None Endocrine/Metabolic History: Reports: None, Diabetes, Type II Hematologic History: Reports: None Immunologic History: Reports: None Oncologic (Cancer) History: Reports: None Other Dermatologic History: atypical pigmented skin lesion, rash - Infectious Disease History Infectious Disease History: Reports: Chicken Pox, Shingles - Past Surgical History Head Surgeries/Procedures: Reports: None Cardiovascular Surgical History: Reports: None Respiratory Surgical History: Reports: None GI Surgical History: Reports: Colonoscopy, Other (See Below) Other GI Surgeries/Procedures: partial colectomy, part of bowel resected unsure of what part Male Surgical History: Reports: None Endocrine Surgical History: Reports: None Neurological Surgical History: Reports: None Musculoskeletal Surgical History: Reports: Shoulder Surgery, Other (See Below) Oncologic Surgical History: Reports: None Dermatological Surgical History: Reports: None Social & Family History - Tobacco Use Tobacco Use Status *Q: Former Tobacco User Used Tobacco, but Quit: Yes Month/Year Tobacco Last Used: 2 - Caffeine Use Caffeine Use: Reports: Coffee - Living Situation & Occupation Living situation: Reports: Occupation: Retired ED ROS GENERAL - Review of Systems Review Of Systems: See Below Constitutional: Reports: No Symptoms HEENT: Reports: No Symptoms Respiratory: Reports: No Symptoms Cardiovascular: Reports: No Symptoms Endocrine: Reports: No Symptoms GI/Abdominal: Reports: Bloody Stool, Diarrhea (Chronic since patient had a colon resection), Hematochezia. Denies: Abdominal Pain, Constipation, Melena, Nausea, Vomiting : Reports: No Symptoms Musculoskeletal: Reports: No Symptoms Skin: Reports: No Symptoms Neurological: Reports: No Symptoms Psychiatric: Reports: No Symptoms Hematologic/Lymphatic: Reports: No Symptoms Immunologic: Reports: No Symptoms ED EXAM, GI/ABD - Physical Exam Exam: See Below Exam Limited By: No Limitations General Appearance: Alert, WD/WN, No Apparent Distress Ears: Hearing Grossly Normal Nose: Normal Inspection Throat/Mouth: Normal Voice, No Airway Compromise Head: Atraumatic, Normocephalic Neck: Normal Inspection, Supple, Non-Tender, Full Range of Motion Respiratory/Chest: No Respiratory Distress, Lungs Clear, Normal Breath Sounds, No Accessory Muscle Use, Chest Non-Tender Cardiovascular: Normal Peripheral Pulses, Regular Rate, Rhythm, No Edema, No Murmur GI/Abdominal Exam: Normal Bowel Sounds, Soft, Non-Tender, No Distention (Male) Exam: Deferred Rectal (Males) Exam: Hemorrhoids Back Exam: Normal Inspection, Full Range of Motion Extremities: Normal Inspection, Normal Range of Motion, Non-Tender, No Pedal Edema, Normal Capillary Refill Neurological: Alert, Oriented, Normal Cognition Psychiatric: Normal Affect, Normal Mood Skin Exam: Warm, Dry, Intact, Normal Color, No Rash Lymphatic: No Adenopathy Course - Vital Signs Text/Narrative:: 74-year-old presents to the ER complaints of hematochezia x2 days. Patient states that 3 days ago he had a bowel movement that he states was bright red blood. He then felt the urge about an hour later to have a second bowel movement however there was no blood noted and it was a normal bowel movement for him. Patient reports a moderate amount of blood in the toilet. He denied being symptomatic i.e. syncopal or near syncopal after this. Patient states the exact same thing happened the following day. The patient has had no bloody stools since that time. He does report that 2 days prior to having hematochezia, when he moved his bowels it felt like a burning sensation. He states the reason he presented today is because when he had his morning bowel movement he had the same burning sensation that he had approximately a week ago and was fearful that he was going to have blood in his stool. He does report a history of significant colon polyps for which she had part of his colon removed and this occurred about 18 months ago. He also has a history of significant hemorrhoids within the past 2 years for which he is needed rectal suppositories. He has had a colonoscopy within the last year. Patient was not orthostatic in triage. Upon assessment, patient does have a significant, moderately sized external hemorrhoid. Last Recorded V/S: Last Vital Signs Temp 96.9 F 10/16/20 07:57 Pulse 64 10/16/20 07:57 Resp 18 10/16/20 07:57 BP 168/75 H 10/16/20 07:57 Pulse Ox 94 L 10/16/20 07:57 - Orders/Labs/Meds Labs: Laboratory Tests 10/16/20 10/16/20 10/16/20 Range/Units 08:15 08:15 08:15 WBC 5.98 (4.23-9.07) K/mm3 RBC 5.49 (4.63-6.08) M/mm3 Hgb 15.8 (13.7-17.5) gm/dl Hct 45.9 (40.1-51.0) % MCV 83.6 (79.0-92.2) fl MCH 28.8 (25.7-32.2) pg MCHC 34.4 (32.2-35.5) g/dl RDW Std Deviation 38.4 (35.1-43.9) fL Plt Count 197 (163-337) K/mm3 MPV 10.8 (9.4-12.3) fl Neut % (Auto) 71.7 H (34.0-67.9) % Lymph % (Auto) 18.6 L (21.8-53.1) % Swift % (Auto) 8.2 (5.3-12.2) % Eos % (Auto) 0.8 (0.8-7.0) Baso % (Auto) 0.5 (0.1-1.2) % Neut # (Auto) 4.29 (1.78-5.38) K/mm3 Lymph # (Auto) 1.11 L (1.32-3.57) K/mm3 Swift # (Auto) 0.49 (0.30-0.82) K/mm3 Eos # (Auto) 0.05 (0.04-0.54) K/mm3 Baso # (Auto) 0.03 (0.01-0.08) K/mm3 PT (9.7-12.0) SECONDS INR APTT 26.8 (21.7-31.4) SECONDS Sodium 139 (136-145) mEq/L Potassium 3.7 (3.5-5.1) mEq/L Chloride 101 (98-107) mEq/L Carbon Dioxide 29 (21-32) mEq/L Anion Gap 12.7 (5-15) BUN 19 H (7-18) mg/dL Creatinine 1.3 (0.7-1.3) mg/dL Est Cr Clr Drug Dosing 45.20 mL/min Estimated GFR (MDRD) 54 (>60) mL/min BUN/Creatinine Ratio 14.6 (14-18) Glucose 416 H (83-115) mg/dL Hemoglobin A1c (4.50-6.20) % Calcium 9.2 (8.5-10.1) mg/dL Total Bilirubin 1.3 H (0.2-1.0) mg/dL AST 35 (15-37) U/L ALT 45 (16-63) U/L Alkaline Phosphatase 62 (46-116) U/L Total Protein 7.8 (6.4-8.2) g/dl Albumin 4.0 (3.4-5.0) g/dl Globulin 3.8 gm/dL Albumin/Globulin Ratio 1.1 (1-2) 10/16/20 10/16/20 Range/Units 08:15 08:15 WBC (4.23-9.07) K/mm3 RBC (4.63-6.08) M/mm3 Hgb (13.7-17.5) gm/dl Hct (40.1-51.0) % MCV (79.0-92.2) fl MCH (25.7-32.2) pg MCHC (32.2-35.5) g/dl RDW Std Deviation (35.1-43.9) fL Plt Count (163-337) K/mm3 MPV (9.4-12.3) fl Neut % (Auto) (34.0-67.9) % Lymph % (Auto) (21.8-53.1) % Swift % (Auto) (5.3-12.2) % Eos % (Auto) (0.8-7.0) Baso % (Auto) (0.1-1.2) % Neut # (Auto) (1.78-5.38) K/mm3 Lymph # (Auto) (1.32-3.57) K/mm3 Swift # (Auto) (0.30-0.82) K/mm3 Eos # (Auto) (0.04-0.54) K/mm3 Baso # (Auto) (0.01-0.08) K/mm3 PT 12.1 H (9.7-12.0) SECONDS INR 1.13 APTT (21.7-31.4) SECONDS Sodium (136-145) mEq/L Potassium (3.5-5.1) mEq/L Chloride (98-107) mEq/L Carbon Dioxide (21-32) mEq/L Anion Gap (5-15) BUN (7-18) mg/dL Creatinine (0.7-1.3) mg/dL Est Cr Clr Drug Dosing mL/min Estimated GFR (MDRD) (>60) mL/min BUN/Creatinine Ratio (14-18) Glucose (83-115) mg/dL Hemoglobin A1c 8.50 H (4.50-6.20) % Calcium (8.5-10.1) mg/dL Total Bilirubin (0.2-1.0) mg/dL AST (15-37) U/L ALT (16-63) U/L Alkaline Phosphatase (46-116) U/L Total Protein (6.4-8.2) g/dl Albumin (3.4-5.0) g/dl Globulin gm/dL Albumin/Globulin Ratio (1-2) - Re-Assessments/Exams Free Text/Narrative Re-Assessment/Exam: 10/16/20 09:11 I have ordered a CBC, CMP, PT/INR, and APTT on the patient. 10/16/20 09:12 CBC and PT/INR is essentially unremarkable, hemoglobin is stable at 15.8, hematocrit 45.9, BUN 19, creatinine 1.3, glucose is 416, total bilirubin 1.3 10/16/20 09:51 Hemoglobin A1c is 8.50. Patient does take Metformin 750 mg daily. After questioning the patient, he does admit to feeling lethargic as of recent and states he has had increased thirst. States that no matter how much he drinks this is not able to be quenched. Patient will be discharged to home he will need to follow-up with his primary care physician within the next couple of days. Departure - Departure Time of Disposition: 09:52 Disposition: Home, Self-Care 01 Condition: Good Clinical Impression: Hemorrhoids, external, Hemoglobin A1c 8.0% or greater - Discharge Information Instructions: Hemorrhoids, [id number] Referrals: Shauna Perez [facility]ERE[facility] POPPER [Primary Care Provider] - Forms: ED Department Discharge Additional Instructions: You were seen in the emergency department with complaints of rectal bleeding. Your blood work was completed and it showed that your hemoglobin is stable. You have no signs of active bleeding at this time. You do have a large external hemorrhoid and likely internal hemorrhoids as well which would be the cause of the burning sensation when having a bowel movement. You can try [id number] hemorrhoid suppositories for this discomfort. Your lab work also did show that your blood sugar was elevated. Your hemoglobin A1c was checked today and it was 8.50. This likely explains your fatigue and increased thirst. You will need to follow-up with Azalia New within the next couple of days regarding both these issues. Please schedule that appointment as soon as possible. Should your condition worsen or change please return to the emergency department. Sepsis Event Note (ED) - Evaluation Sepsis Screening Result: No Definite Risk - Focused Exam Vital Signs: Vital Signs Temp Pulse Resp BP Pulse Ox 10/16/20 07:57 96.9 F 64 18 168/75 H 94 L
[2020-10-16 09:42] LABS: HEMOGLOBIN A1C 8.5 % (4.50-6.20)
== END 2020-10-16 10:15 | disposition home or self-care (01) ==
LOC: JD.ED 07:49
DX: K64.4 Residual hemorrhoidal skin tags (principal); D58.2 Other hemoglobinopathies; I10 Essential (primary) hypertension; K21.9 Gastro-esophageal reflux disease without esophagitis; E11.9 Type 2 diabetes mellitus without complications; Z87.891 Personal history of nicotine dependence; Z79.899 Other long term (current) drug therapy
CPT/HCPCS: 36415; 80053; 83036; 85025; 85610; 85730; 99283

== ENCOUNTER 2023-09-17 08:41 | Day surgery (SDC) | payer MEDICARE ==
[2023-09-17] MEDS: Polymyxin B/Trimethoprim 10 ML Bottle EYERT SCH ×4 (07:06→08:39)
[2023-09-17] MEDS: Brimonidine 0.2% Ophth Soln 5 ML Bottle EYERT SCH ×4 (07:11→08:39)
[2023-09-17] MEDS: Phenylephrine 2.5% Ophth Soln 2 ML Bot EYERT SCH ×5 (07:16→08:16)
[2023-09-17] MEDS: Tropicamide 1% Ophth Soln 3 ML Bottle EYERT SCH ×4 (07:21→07:58)
[2023-09-17] MEDS: Tetracaine HCl/PF 0.5% 4 ML Bottle EYEBOTH SCH ×5 (08:00→08:28)
[2023-09-17] MEDS: Cefuroxime 10 MG/ML SYRINGE EYERT SCH ×2 (08:28→08:38)
[2023-09-17] MEDS: Pilocarpine 4% Ophth Soln 15 ML Bot EYERT SCH ×2 (08:29→08:39)
[~2023-09-17 08:41] MED LIST changes: -Lactated Ringers 1,000 ML IV SCH; +Lidocaine 1% PF 2 ML SDV INJECT SCH; -Lidocaine 1%/Sod Bicarbonate in NS 8.4% 1 ML Syringe IDERM PRN; -Sodium Chloride 0.9% 10 ML Syringe FLUSH PRN
== END 2023-09-17 08:48 | disposition home or self-care (01) ==
LOC: JD.SDS 08:41
PROVIDERS: ATTEND Ophthalmology
DX: H25.813 Combined forms of age-related cataract, bilateral (principal); I10 Essential (primary) hypertension; E78.00 Pure hypercholesterolemia, unspecified; E11.9 Type 2 diabetes mellitus without complications; Z79.899 Other long term (current) drug therapy; Z98.890 Other specified postprocedural states
CPT/HCPCS: 66982; A9270; J0697; V2788; 00142; 99100; J3490

== ENCOUNTER 2023-10-05 07:15 | Day surgery (SDC) | payer MEDICARE ==
[~2023-10-05 07:15] MED LIST changes: +Cefuroxime 10 MG/ML SYRINGE EYERT SCH; +Pilocarpine 4% Ophth Soln 15 ML Bot EYERT SCH; +Tetracaine HCl/PF 0.5% 4 ML Bottle EYEBOTH SCH
[2023-10-05] MEDS: Polymyxin B/Trimethoprim 10 ML Bottle EYERT SCH ×3 (07:32→09:10)
[2023-10-05] MEDS: Brimonidine 0.2% Ophth Soln 5 ML Bottle EYERT SCH ×3 (07:37→09:10)
[2023-10-05] MEDS: Phenylephrine 2.5% Ophth Soln 2 ML Bot EYERT SCH ×5 (07:42→08:49)
[2023-10-05] MEDS: Tropicamide 1% Ophth Soln 3 ML Bottle EYERT SCH ×4 (07:47→08:27)
[2023-10-05] MEDS: Proparacaine 0.5% Ophth Soln 15 ML Bottle EYEBOTH SCH ×4 (08:42→08:55)
== END 2023-10-05 09:18 | disposition home or self-care (01) ==
LOC: JD.SDS 07:15
PROVIDERS: ATTEND Ophthalmology
DX: H25.812 Combined forms of age-related cataract, left eye (principal); H21.81 Floppy iris syndrome; H21.40 Pupillary membranes, unspecified eye; H02.831 Dermatochalasis of right upper eyelid; H02.834 Dermatochalasis of left upper eyelid; H57.813 Brow ptosis, bilateral; H11.153 Pinguecula, bilateral; E11.9 Type 2 diabetes mellitus without complications; I10 Essential (primary) hypertension; E78.00 Pure hypercholesterolemia, unspecified; K21.9 Gastro-esophageal reflux disease without esophagitis; Z79.84 Long term (current) use of oral hypoglycemic drugs; Z79.899 Other long term (current) drug therapy
CPT/HCPCS: 66982; A9270; J0697; J3490; V2788-GY